=== PATIENT | male | born 1960 | race Caucasian/White ===

== ENCOUNTER 2023-04-09 01:33 | Day surgery (SDC) | payer BC, SELFPAY ==
[2023-03-15 13:38] VITALS: BMI 27.3
--- NOTE | 2023-04-06 12:17 | SUR.PREOP ---
Patient called regarding upcoming procedure. Reviewed preop instructions, appointment times, and procedure prep.
--- NOTE | 2023-04-06 14:20 | PM.HPGS ---
History of Present Illness History of Present Illness Consent: Risks, benefits, and alternatives have been discussed and questions answered. Patient agrees to proceed with procedure. Chief complaint: History colon polyps Narrative: Tyler Oshea is a 63 year old male Referred for colon cancer screening. His last colonoscopy was 10 years ago it was normal except that he had a hyperplastic polyp. Review of Systems Review of Systems: All systems reviewed & are unremarkable except as noted in HPI and below PMFSH Past Medical History Medical History Anxiety Diarrhea HLD (hyperlipidemia) HTN (hypertension) Vision loss Family History Family History Father Hypertension Family history of elevated blood lipids Family history of malignant neoplasm of brain Mother Hypertension Family history of elevated blood lipids Other Cancer Diabetes mellitus Social History Social History Smoking status: Never smoker Second hand tobacco smoke exposure: Yes Alcohol intake: current Alcohol use details: few drinks monthy Substance use: never Substance use type: does not use Lack of Transportation: No Lack of Food: Never True Current Housing: Decline to Answer Concerned About Future Housing: Decline to Answer Difficulty Paying Gas/Electric Bills: Decline to Answer Difficulty Paying for Meds: Decline to Answer Currently Unemployed: Decline to Answer Education: Decline to Answer Difficulty w/ Childcare or Family Care: Decline to Answer Living arrangements: with family Occupation/Education: occupation Gender identity (if verbalized by the patient): Male Spiritual care concerns: No Meds Home Medications and Allergies Home Medications Medication Instructions Recorded Confirmed Type sildenafil 100 mg tablet (Viagra) 100 mg PO DAILY PRN sexual 07/19/20 04/09/23 Rx activity #10 tabs lisinopril 10 mg tablet 10 mg PO DAILY #90 tabs 11/03/22 04/09/23 Rx alprazolam 0.5 mg tablet 0.5 mg PO TID PRN anxiety #30 tabs 02/07/23 04/09/23 Rx atorvastatin 40 mg tablet See Rx Instructions .Route 02/07/23 04/09/23 Rx .COMPLEX #90 tabs testosterone cypionate 200 mg/mL 200 mg IM .EVERY 4 WEEKS 03/15/23 04/09/23 History intramuscular oil Allergies Allergy/AdvReac Type Severity Reaction Status Date / Time No Known Allergies Allergy Verified 04/09/23 07:02 Exam Const: General: alert Orientation/consciousness: patient oriented x3 Resp: Auscultation: clear to auscultation bilaterally Cardio: Rhythm: regular rhythm GI: GI Palp: Yes Soft to palpation and No Tenderness to palpation present (GI) Neuro: General: patient oriented x3 Assessment and Plan Assessment and plan (1) Colon cancer screening: Code(s): Z12.11 - Encounter for screening for malignant neoplasm of colon Status: Resolved Assessment and Plan: Colonoscopy with possible biopsy or polypectomy or cautery or injection of substances.
[2023-04-09 07:06] VITALS: BP 107/76; PULSE 89; RESP 16; TEMP 36.2; O2SAT 98
[2023-04-09] MEDS: LACTATED RINGERS 1,000 ML 150 ML IV CONT (07:14)
[2023-04-09 08:19] VITALS: BP 84/56; PULSE 85; RESP 20; O2SAT 98
[2023-04-09 08:29] VITALS: BP 95/49; PULSE 88; RESP 20; O2SAT 96
[2023-04-09 08:39] VITALS: BP 103/64; PULSE 78; RESP 20; O2SAT 97
--- NOTE | 2023-04-10 15:20 | WPDANESEPPF ---
Anes - Initial Pre Proc Eval Procedure: Operation Date: 04/09/23 08:00 Proposed Procedures p Colonoscopy - Cem Henriquez MD Date/Time: 04/10/23 15:20 Surgeon: Cem Henriquez MD Pre Op Diagnosis: History colon polyps Patient Data Age: 63 Gender: M Height: 1.75 m Weight: 83.2 kg Last Vital Signs Temp 97.1 F L 04/09/23 07:06 Pulse 78 04/09/23 08:39 Resp 20 04/09/23 08:39 BP 103/64 04/09/23 08:39 Pulse Ox 97 04/09/23 08:39 O2 Del Method Room Air 04/09/23 08:39 Allergies Allergy/AdvReac Type Severity Reaction Status Date / Time No Known Allergies Allergy Verified 04/09/23 07:02 Home Medications Medication Instructions Recorded Confirmed Type sildenafil 100 mg tablet (Viagra) 100 mg PO DAILY PRN sexual 07/19/20 04/09/23 Rx activity #10 tabs lisinopril 10 mg tablet 10 mg PO DAILY #90 tabs 11/03/22 04/09/23 Rx alprazolam 0.5 mg tablet 0.5 mg PO TID PRN anxiety #30 tabs 02/07/23 04/09/23 Rx atorvastatin 40 mg tablet See Rx Instructions .Route 02/07/23 04/09/23 Rx .COMPLEX #90 tabs testosterone cypionate 200 mg/mL 200 mg IM .EVERY 4 WEEKS 03/15/23 04/09/23 History intramuscular oil Patient hx anesthesia problems: none Family hx anesthesia problems: none Results Review: All pre-operative results and documents have been reviewed as part of the pre-operative evaluation. [facility] Past Medical History Medical History Anxiety Diarrhea HLD (hyperlipidemia) HTN (hypertension) Vision loss Family History Family History Father Hypertension Family history of elevated blood lipids Family history of malignant neoplasm of brain Mother Hypertension Family history of elevated blood lipids Other Cancer Diabetes mellitus Social History Social History Smoking status: Never smoker Second hand tobacco smoke exposure: Yes Alcohol intake: current Alcohol use details: few drinks monthy Substance use: never Substance use type: does not use Lack of Transportation: No Lack of Food: Never True Current Housing: Decline to Answer Concerned About Future Housing: Decline to Answer Difficulty Paying Gas/Electric Bills: Decline to Answer Difficulty Paying for Meds: Decline to Answer Currently Unemployed: Decline to Answer Education: Decline to Answer Difficulty w/ Childcare or Family Care: Decline to Answer Living arrangements: with family Occupation/Education: occupation Gender identity (if verbalized by the patient): Male Spiritual care concerns: No Anes - Eval Final PreProcedure Day of Procedure 04/10/23 15:20 Patient weight: normal Heart: regular rate and rhythm Lungs: clear to auscultation Airway: Mallampati scale class II Neurological: alert and oriented Last oral intake: >/= 8 hours ASA classification: II Emergent: no Anesthetic plan: proceed Anesthesia type and monitoring: general GIVS and standard monitoring Results Review: All pre-operative results and documents have been reviewed as part of the pre-operative evaluation. Informed Consent: The patient's anesthetic plan and its attendant risks and benefits were discussed with the patient/family/POA. Questions were solicited and answers provided to the satisfaction of the patient/family/POA.
== END 2023-04-09 08:56 | disposition home or self-care (01) ==
PROVIDERS: PCP Nurse Practitioner; Visit Provider Internal Medicine Gastroenterology
PROC: 0DJD8ZZ Inspection of Lower Intestinal Tract, Via Natural or Artificial Opening Endoscopic (ICD-10-PCS; CPT 45378; principal; 2023-04-09 08:00)
DX: Z12.11 Encounter for screening for malignant neoplasm of colon (principal); D12.5 Benign neoplasm of sigmoid colon; K64.8 Other hemorrhoids; K57.30 Diverticulosis of large intestine without perforation or abscess without bleeding; I10 Essential (primary) hypertension; E78.5 Hyperlipidemia, unspecified; F41.9 Anxiety disorder, unspecified; Z86.010 Personal history of colon polyps; Z80.8 Family history of malignant neoplasm of other organs or systems
CPT/HCPCS: 45385; 88305; J2371; J2704; J7120